=== PATIENT | male | born 1965 | race Caucasian/White ===

== ENCOUNTER 2019-11-25 10:18 | Observation (INO) | payer OTHER ==
[~2019-11-25] VITALS: Ht 170.2 cm; Wt 78.1 kg
[~2019-11-25 10:18] MED LIST: BUPIVACAINE/PF 0.5% ONE; EPINEPHRINE 1 MG/ML, 1ML ONE; OMEP20TA62 PO
[2019-11-25] MEDS ORDERED: LACTATED RINGERS 1,000 ML IV ONE (11:06)
[2019-11-25 11:28] VITALS: BP 133/92
[2019-11-25] MEDS ORDERED: MIDAZOLAM 1 MG/ML, 2ML ONE (13:17)
[2019-11-25] MEDS ORDERED: FENTANYL PF 250 MCG/5ML ONE (13:17)
[2019-11-25] MEDS ORDERED: PROPOFOL 10 MG/ML, 20ML ONE (13:18)
[2019-11-25] MEDS ORDERED: LIDOCAINE-MPF 2% ,5ML ONE (13:19)
[2019-11-25] MEDS ORDERED: ONDANSETRON 2MG/ML, 2ML ONE (13:19)
[2019-11-25] MEDS ORDERED: DEXAMETHASONE 4 MG/ML, 1ML ONE (13:20)
[2019-11-25] MEDS ORDERED: CEFAZOLIN 1,000 MG ONE ×2 (13:20)
[2019-11-25] MEDS ORDERED: NEOSTIGMINE 1 MG/ML, 10ML ONE (14:26)
[2019-11-25] MEDS ORDERED: GLYCOPYRROLATE 0.2MG/1ML, 5ML ONE (14:26)
[2019-11-25] MEDS ORDERED: ROCURONIUM 10 MG/ML,10ML ONE (14:26)
[2019-11-25] MEDS ORDERED: LABETALOL 5MG/ML, 20ML IV PRN (14:30)
[2019-11-25] MEDS ORDERED: LORazepam 2 MG/ML, 1ML IVPush PRN (14:30)
[2019-11-25] MEDS ORDERED: OXYcodone 5 MG/5 ML ORAL.SOL UDC PO PRN (14:30)
[2019-11-25] MEDS ORDERED: MEPERIDINE/PF 25MG/ML,1ML IVPush PRN (14:30)
[2019-11-25] MEDS ORDERED: ONDANSETRON 2MG/ML, 2ML IV PRN (14:30)
[2019-11-25] MEDS ORDERED: ACETAMINOPHEN 325 MG TABLET PO PRN (14:30)
[2019-11-25] MEDS ORDERED: hydrALAzine 20 MG/ML, 1ML IV PRN ×2 (14:30→16:30)
[2019-11-25] MEDS: LACTATED RINGERS 1,000 ML IV SCH (16:06)
[2019-11-25] MEDS ORDERED: FENTANYL PF 100 MCG/2ML ONE ×2 (16:10→16:29)
[2019-11-25] MEDS ORDERED: MEPERIDINE/PF 25MG/ML,1ML ONE (16:10)
[2019-11-25] MEDS ORDERED: OXYcodone 5 MG/5 ML ORAL.SOL UDC ONE (16:10)
[2019-11-25] MEDS: FENTANYL PF 100 MCG/2ML IV PRN ×4 (16:20→16:48)
[2019-11-25] MEDS ORDERED: morphine SULFATE 10 MG/ML, 1ML IV PRN (16:30)
[2019-11-25] MEDS ORDERED: ENALAPRILAT 1.25 MG/ML, 2ML IV PRN (16:30)
[2019-11-25] MEDS ORDERED: PROMETHAZINE 25 MG/ML, 1ML IM PRN (16:30)
[2019-11-25] MEDS ORDERED: ONDANSETRON 2MG/ML, 2ML IVPush PRN (16:30)
[2019-11-25] MEDS ORDERED: HYDROmorphone 1 MG/ML, 1ML INJ ONE ×2 (16:30→16:52)
[2019-11-25] MEDS ORDERED: DIPHENHYDRAMINE 50 MG/ML, 1ML IV PRN (16:30)
[2019-11-25] MEDS ORDERED: PROMETHAZINE 12.5 MG SUPP PR PRN (16:30)
[2019-11-25] MEDS ORDERED: LORazepam 2 MG/ML, 1ML IV PRN (16:30)
[2019-11-25] MEDS ORDERED: HYDROcodone/APAP 7.5-325MG/15ML UDC PO PRN (16:30)
[2019-11-25] MEDS: HYDROmorphone 2 MG/ML, 1ML IVPush PRN ×4 (16:33→17:02)
[2019-11-25 20:05] VITALS: BP 124/85
[2019-11-25] MEDS: FAMOTIDINE 20 MG/2 ML IV SCH (21:28)
[2019-11-26] MEDS: KETOROLAC 30 MG/1 ML IV PRN ×2 (01:45→08:10)
[2019-11-26 02:06] VITALS: BP 130/87
[2019-11-26] MEDS: LACTATED RINGERS 1,000 ML IV SCH ×2 (04:24→08:10)
[2019-11-26 04:38] VITALS: BP 116/78
[2019-11-26] MEDS: FAMOTIDINE 20 MG/2 ML IV SCH (06:35)
[2019-11-26 07:50] VITALS: BP 119/76
[2019-11-26] MEDS ORDERED: ENOXAPARIN 40 MG/0.4 ML SQ SCH (09:00)
[2019-11-26] MEDS ORDERED: HYDR15SO3 PO (09:23)
[2019-11-26 09:39] VITALS: BP 133/82
== END 2019-11-26 10:50 | disposition home or self-care (01) ==
LOC: OUT 10:18 → ORIP 16:06 → 4NE 18:01 → DCLOUNGE 11-26 10:41
PROVIDERS: ADMIT Thoracic Surgery (Cardiothoracic Vascular Surgery); ATTEND Thoracic Surgery (Cardiothoracic Vascular Surgery)
DX: K44.9 Diaphragmatic hernia without obstruction or gangrene (principal); K21.9 Gastro-esophageal reflux disease without esophagitis; Z79.899 Other long term (current) drug therapy
CPT/HCPCS: 43282; 96372; 96374; 96375; 96376; C1781; G0378; J0171; J0690; J1100; J1170; J1650; J1885; J2175; J2250; J2405; J2704; J2710; J3010; J3490; J7120; S0020; S2900